=== PATIENT | female | born 1935 | race Caucasian/White ===

== ENCOUNTER 2018-08-01 14:03 | Outpatient (CLI) | payer MEDICARE, OTHER, MEDICAID ==
--- NOTE | 2018-07-28 13:36 | RAD ---
CHEST 2 VIEWS: Date: 07/28/18 COMPARISON: 05/06/16. HISTORY: Dyspnea. FINDINGS: Atherosclerosis of aorta. Enlarged cardiac silhouette. Pulmonary vessels and hilum are normal. Costop hrenic angles are clear. Chronic changes in the lung parenchyma. There is no pneumothorax. Stable joe nges in the osseous structures with degenerative change of the shoulders, as well as significant kyph osis of the thoracic spine and stable scoliosis. Extensive atherosclerosis of aorta is noted. IMPRESSION: 1. Atherosclerosis. 2. Chronic changes. POS: [facility]
== END 2018-08-01 14:04 | disposition home or self-care (01) ==
LOC: RAD 14:03
PROVIDERS: ATTEND Internal Medicine
DX: R06.00 Dyspnea, unspecified (principal); I70.0 Atherosclerosis of aorta
CPT/HCPCS: 71046

== ENCOUNTER 2018-11-24 20:00 | Inpatient (IN) | payer MEDICARE, OTHER, MEDICAID ==
[2018-11-24] MEDS ORDERED: Tranexamic Acid 1,000 MG/10 ML VIAL ONE (20:12)
[2018-11-24 20:53] LABS: #Basophils 0.1 thou/uL (0.0-0.2); #Eosinphils 0.1 thou/uL (0.0-0.7); #Lymphocytes 0.8 thou/uL (1.20-3.40); #Monocytes 0.8 thou/uL (0.11-0.59); #Neutrophils 6.9 thou/uL (1.40-6.50); %Eosinophils 0.9 % (0.0-10.0); %Lymphocytes 9.4 % (21.0-51.0); %Monocytes 8.7 % (0.0-10.0); Hemoglobin 8.2 g/dL (12.0-16.0); Mean Corpuscular HGB CONC 31.5 g/dL (32.0-36.0); Mean Corpuscular Hemoglobin 31.1 pg (27.0-31.0); Mean Corpuscular Volume 98.7 fL (78.0-98.0); Mean Platelet Volume 6.2 fL (7.4-10.4); Platelet Count 179 thou/uL (130-400); RBC Distribution Width 12.2 % (11.5-14.5); Red Blood Cell (RBC) Count 2.64 mill/uL (4.20-5.40); White Blood Cell (WBC) Count 8.6 thou/uL (4.8-10.8)
[2018-11-24 21:00] LABS: INR-International Normal Ratio 0.9; PTT 19.4 SEC (22.9-36.1); Prothrombin Time 11.8 SEC (12.0-14.7)
[2018-11-24 21:10] LABS: BUN (Urea Nitrogen) 29 mg/dL (9.8-20.1); Calc. Creatinine Clearance 0 mL/min (70-130); Calcium 8.6 mg/dL (7.8-10.44); Estimated GFR-MDRD 38; Glucose 147 mg/dL (83-110)
[2018-11-24 21:19] LABS: Anion Gap 17 mmol/L (10-20); Chloride 80 mmol/L (98-107); Sodium 135 mmol/L (136-145)
[2018-11-24 21:22] LABS: Carbon Dioxide 42 mmol/L (23-31)
--- NOTE | 2018-11-24 22:21 | RAD ---
PORTABLE CHEST ONE VIEW: 11/24/18 at 9:58 p.m. HISTORY: Dyspnea. FINDINGS/IMPRESSION: comparison made with exam of 07/28/18. The heart is enlarged. There is pulmonary vascular congestion with small pleural effusions and adjace nt infiltrate/atelectatic changes. No definite pneumothoraces are seen. There are degenerative change s in the shoulder joints. POS: [facility]
[2018-11-24] MEDS ORDERED: Piperacillin/Tazobactam 4.5 GM VIAL ONE (23:50)
[2018-11-25] MEDS ORDERED: cefTRIAXone\\ROCEPHIN 1 GM in Sodium Chloride 0.9% 100 ML IVPB SCH (02:30)
[2018-11-25] MEDS ORDERED: Furosemide 40 MG/4 ML VIAL SLOW IVP SCH (09:55)
[2018-11-25] MEDS: Digoxin 0.125 MG TAB PO SCH (10:43)
--- NOTE | 2018-11-25 11:11 | HP ---
CHIEF COMPLAINT: Nasal bleed and shortness of breath. HISTORY OF PRESENT ILLNESS: An 83-year-old female with past medical history significant for chronic respiratory failure from COPD, restrictive lung disease, CHF as well as atrial fibrillation, who presents to the emergency room with acute onset of epistaxis since yesterday afternoon. Due to persistent epistaxis, the patient has had removed the oxygen supplementation and was noted to be hypoxic with SpO2 in 70s by the EMS, who we are called for the epistaxis. The patient also reported worsening shortness of breath, which has been ongoing since about 2 months associated with worsening leg swelling and generalized weakness as well as difficulty ambulating due to worsening leg swelling. Of note, the patient reported that about 3 weeks ago, she was started on Xarelto for atrial fibrillation that had to be discontinued 2 days after due to persistent epistaxis. Since then, she has been having intermittent epistaxis, which stopped spontaneously, but yesterday's one did not stop, hence they had called EMS to help out. Of note, also the patient had discontinued aspirin, but this was restarted about a week ago. EMS had started the patient on non-rebreather mask with improvement in oxygen saturation. Nasal bleed was controlled with nasal packing and further evaluation with chest x-ray showed interstitial infiltrates and poor lung expansion as well as bilateral pleural effusion with atelectasis. ED physician made an impression of possible pneumonia and has started the patient on antibiotics and admitted the patient for further evaluation and treatment. The patient denied cough, fever, or sputum production. She also denied chest pain, nausea, vomiting, change in bowel habit, hematuria, dysuria. PAST MEDICAL HISTORY: 1. Hypertension. 2. Dementia. 3. Osteoporosis with severe kyphoscoliosis. 4. Chronic respiratory failure on home oxygen. 5. COPD. 6. Atrial fibrillation. 7. Congestive heart failure. PAST SURGICAL HISTORY: 1. Cholecystectomy. 2. Left hip surgery. 3. Appendectomy. 4. Hysterectomy with bilateral oophorectomy. SOCIAL HISTORY: The patient lives with children. She used to smoke, but quit a long time ago. There is no history of diabetes in the family, but mother and father had hypertension. Brother also had lung cancer. ALLERGIES: NO KNOWN DRUG ALLERGY REPORTED. HOME MEDICATIONS: 1. DuoNeb. 2. Daliresp 500 mcg daily. 3. Metoprolol. 4. Cardizem 120. 5. Aspirin 81 mg. 6. Budesonide 1 puff b.i.d. 7. Formoterol nebulizer 20 mcg inhalation b.i.d. 8. Meloxicam 50 mg daily. 9. Torsemide 50 mg daily. 10. Trazodone 100 mg at bedtime. 11. Digoxin 0.125 mg daily. 12. Donepezil 10 mg daily. REVIEW OF SYSTEMS: Twelve-point review of system performed was negative other than pertinent positives and negatives included in the history of present illness. PHYSICAL EXAMINATION: VITAL SIGNS: EMS had reported SpO2 of 70% at the patient's house. Vitals on presentation to the emergency room showed BP of 142/61, pulse of 102, respiratory rate of 22, SpO2 of 99 on non-rebreather mask. Current vital signs showed BP of 160/65, pulse 76, respiratory rate 16, SpO2 of 93 on 2 L nasal cannula, temperature 98.4. GENERAL: Clinically, ill-looking elderly female in no mild respiratory distress. Afebrile, anicteric, acyanotic. HEENT: Normocephalic. Right nose 3 packing noted. NECK: Marked kyphosis involving the lumbar, thoracic, and cervical spine. No masses noted. PULMONARY: Fair air entry bilateral with some transmitted sounds and few scattered rhonchi. Expiratory phase is prolonged, and work of breathing is increased. CARDIAC: Irregularly irregular rhythm and rate. Normal heart sounds 1 and 2. GI: Abdomen is full, soft, nontender, nondistended with normal bowel sounds. EXTREMITIES: [id number] bilateral leg edema noted. These are also tender. Scattered ecchymoses both patchy and confluent noted on both extremities, especially right upper limb. NEUROLOGIC: Conscious, alert, and oriented x3 with appropriate mental status. Cranial nerves 2 through 12 are grossly intact. The patient moves all extremities, but weakly. DIAGNOSTIC DATA: CBC showed WBC count of 8.6, hemoglobin of 8.2, platelet of 179, MCV of 98.7. Coagulation panel showed PT 11.8, INR 0.9, PTT 19.4. BMP showed sodium 135, potassium 4.0, chloride 80, CO2 of 42, anion gap 17, BUN 29, creatinine 1.33, glucose 147, calcium 8.6. BNP is 287.5. Serial troponins were unremarkable ranging from 0.024 to 0.025. Chest x-ray of November 24 compared to July 28, 2018 showed enlarged heart as well as pulmonary vascular congestion with small pleural effusion and adjacent infiltrates like atelectatic changes. No definite pneumothorax was seen. EKG: Showed atrial fibrillation with controlled ventricular rate of 86. ASSESSMENT AND PLAN: 1. Intractable epistaxis: This most likely is related to dry oxygen supplementation as well as use of antiplatelets. Epistaxis started since the patient was commenced on Xarelto, though that has been discontinued. The patient also had evidence of increased bleeding tendency given scattered patchy and confluent ecchymoses noted on the skin. Right nostril is packed at this time, and ENT re-evaluation is awaited at this time. 2. Acute on chronic congestive heart failure, most likely diastolic. Echocardiogram of 2014 showed preserved systolic function. The patient reportedly had a repeat echocardiogram last week and was told she had CHF exacerbation by the toe puncher. The patient at home takes torsemide, but had marked bilateral edema and also reported that shortness of breath has worsened in the last 1 to 2 months. We will start the patient on IV Lasix 40 mg b.i.d. and monitor I and O as well as daily weights and renal function. 3. Chronic respiratory failure on home oxygen: This is multifactorial in etiology with severe kyphosis with restrictive lung disease as well as COPD and CHF contributing. We will continue oxygen supplementation. 4. Chronic obstructive pulmonary disease: We will continue current breathing treatments, which include Daliresp as well as inhaled steroid. We will also continue p.r.n. DuoNeb's. 5. Atrial fibrillation: Chronic. Rate is controlled. We will continue digoxin and Cardizem. 6. Bilateral leg edema: Most likely due to congestive heart failure exacerbation. We will elevate both extremities and monitor with diuretics. 7. Chronic kidney disease with possible reversible component. The patient was noted to have normal creatinine of 0.95 in 2014. Currently, creatinine is 1.33. This may well be related to diuretic therapy at home or progression of CKD. We will monitor renal function with treatment with diuretics. 8. Hypertension: Control is fair. We will monitor with restarting of antihypertensives. 9. Deep vein thrombosis prophylaxis with sequential compression devices. No pharmacologic prophylaxis due to acute bleeding. 10. Anemia: Hemoglobin is 8.8. This is down from 12 in 2015. Acute blood loss, it seems most likely given history of intermittent epistaxis in the last 3 weeks. The patient is said to have lost good amount of blood from epistaxis. Some component of hemodilution giving fluid overload may be contributory. 11. Moderate protein-calorie malnutrition. The patient is said to have poor appetite and intake in the last few months due to worsening shortness of breath. I discussed possibility of diet supplement, and the patient was not enthusiastic. She does not like it and is not interested in trying. 12. Bilateral infiltrates on chest x-ray: This most likely is related to pulmonary congestion. Pneumonia is unlikely in the absence of systemic inflammatory response and cough. We would discontinue antibiotics. DISPOSITION: The patient ideally should be hospitalized for optimization. She, however, is bent on leaving the hospital today. I discussed hospice care with the patient and daughter, who are inclined to listening to them. I will consult Palliative Care. We will also consult Cardiology to help in optimizing the patient at this time since she just did echocardiogram a week ago and we are not privy to the reports. CODE STATUS: The patient is do not resuscitate. I discussed this with the patient and daughter at the bedside. Surrogate decision makers are the patient's 3 children. Job ID: [id number]
[2018-11-25] MEDS: Furosemide 40 MG/4 ML VIAL SLOW IVP SCH (15:18)
[2018-11-25] MEDS: Carvedilol 3.125 MG TAB PO SCH (20:42)
[2018-11-25] MEDS: Acetaminophen 325 MG TAB PO PRN (20:42)
--- NOTE | 2018-11-26 00:48 | CON ---
DATE OF CONSULTATION: PRIMARY CARE DOCTOR: Dr. Zakc Maldonado. PRIMARY ENDBAND CUTTER HAND: Dr. Lu Carpenter. REASON FOR CONSULT: New onset congestive heart failure. HISTORY OF PRESENT ILLNESS: Ms. Cheng is an 83-year-old female with a significant history of COPD with home O2 at 3 L nasal cannula, hypertension, atrial fibrillation, osteoporosis. The patient started having massive nose bleed since yesterday 3:00 p.m. The patient and the family member tried to stop, no success and also patient started having worsening of shortness of breath. Due to these symptoms, patient was transferred to the emergency department for further evaluation and treatment. Now, the patient was found to have a hemoglobin level of 8.2. At this moment, the patient's nosebleed stopped. The patient had a history of massive nosebleed before a couple months ago due to Xarelto for new onset atrial fibrillation. At that time, Xarelto was stopped because of those reasons. She is on aspirin 81 mg once a day at this moment for atrial fibrillation. The patient denies any chest pain, heaviness, tightness, dizziness, lightheadedness, numbness to the left upper arm, to the neck or any other cardiac complaints during the episode. She had a very short episode of fluttering this morning. However, she does not have any other cardiac complaints at that time. The patient had echocardiogram done at Dr. Carpenter' office in October 2018, which shows EF of 55% to 60%, [id number] LAE, moderate NADYA, [id number] mitral valve regurgitation, and moderate tricuspid regurgitation, mild pulmonary insufficiency, mild pulmonary hypertension, elevated RVSP 48.3 mmHg. She had chronic edema in the lower extremities. She has not had any other cardiac workup according to Dr. Carpenter' office note. PAST MEDICAL HISTORY: 1. Atrial fibrillation. 2. Hypertension. 3. COPD with home O2 at 3 L nasal cannula. Patient has seen Dr. Swann. 4. Insomnia. 5. Hypoxia. 6. Osteoporosis. SURGICAL HISTORY: 1. Appendectomy. 2. Cholecystectomy. 3. Bilateral hip surgery. 4. Cataracts. 5. Hysterectomy with bilateral oophorectomy. FAMILY HISTORY: The patient's father had a history of myocardial infarction at the age of 72. Besides that, no significant cardiovascular disease in her family. SOCIAL HISTORY: The patient is . She is living with her daughter. She is an ex-smoker, quit about 10 years ago. She used to smoke half a pack a day. She used to drink alcohol 2 double whiskey everyday, but she quit about 6 years ago. No illicit drug abuse. She drinks 32 ounces tea every day. ALLERGIES: SHE HAS NO KNOWN DRUG ALLERGIES. HOME MEDICATION: 1. Albuterol 1.5 mg nebs every 6 hours as needed. 2. Aspirin 81 mg once a day. 3. Aricept 10 mg once a day. 4. Diltiazem 120 mg once a day. 5. Trazodone 100 mg once a day. 6. Torsemide 50 mg once a day. 7. Digoxin 0.125 mg once a day. 8. Mobic 15 mg once a day. 9. Daliresp 500 mg once a day. 10. Multivitamin once a day. 11. Metoprolol 25 mg twice a day. 12. Perforomist 20 mcg every 12 hours. 13. Budesonide one puff twice a day. REVIEW OF SYSTEMS: 12-point review of systems negative otherwise mentioned in the HPI. The patient used to be on a can of soup one and half months before due to the worsening of shortness of breath. About 3 weeks ago, she started taking more solid food. The daughter is watching more carefully about the salt intake at this moment. She uses a cane at home and she uses a wheelchair when she is going out. She denies any constipation, diarrhea, blood in stool or urine. PHYSICAL EXAMINATION: VITAL SIGNS: Blood pressure 130/58, temperature 99.1, heart rate 100, atrial fibrillation, respiratory rate 18, O2 saturation 92% on 3 L nasal cannula. GENERAL: Patient is alert and oriented x4, not in acute distress. HEENT: Normocephalic, atraumatic. EYES: Extraocular muscle movement intact. ENT and mouth, oral and nasal mucosa moist. She has dried blood to right naris, but no current bleeding at this moment. NECK: Supple. Normal range of motion. RESPIRATORY: Very diminished over her lungs at this moment, but no wheezing, rales, rhonchi noted. CARDIOVASCULAR: Irregular rate and rhythm. No S3 or S4. No significant murmur, heaves, or thrill noted. 2+ pulses in bilateral upper and lower extremities. 2 to 3 pitting edema in the lower extremities with discoloration. ABDOMEN: Soft, nontender. No mass to palpitate. Bowel sounds are present. MUSCULOSKELETAL: The patient is able to move all extremities. The patient denied claudication. SKIN: Bruise to upper and lower extremities. The patient had very thin skin, but no rash noted or laceration noted. PSYCHIATRIC: Patient's mood is appropriate. NEUROLOGIC: The patient is alert and oriented x4, nonfocal. LABORATORY DATA: WBC 8.6, hemoglobin 8.2, hematocrit 26.1, platelet 179. PT 11.8, INR 0.9. Sodium 135, potassium 4.0, BUN 29, creatinine 1.33. Troponin 0.024, 0.024, and 0.025. BNP 287.5. Patient's chest x-ray shows pulmonary vascular congestion with small pleural effusion and adjacent infiltrate, atelectatic change. There are degenerative changes in the shoulder joint. ASSESSMENT/PLAN: 1. Acute on diastolic heart failure. The patient's condition is stable at this moment after the patient received Lasix 40 mg IV push. Per family, she is on Lasix 40 mg IV push twice a day for now, however, she is not on LAUREN inhibitor or ARB at this moment due to elevated creatinine level. We would like to start some beta-darrel for this patient, low dose of metoprolol for this patient or I would like to start the Coreg for diastolic heart failure, but we have to be very careful about starting the beta-darrel because the patient has a long history of COPD with home O2. 2. Atrial fibrillation. The patient continued having the atrial fibrillation on the monitor at this moment with a well controlled heart rate. The patient on diltiazem 120 mg once a day and digoxin 0.125 mg once a day. She is not on any anticoagulant or aspirin at this moment due to history of status post massive nosebleed. We would like to continue to monitor and if the patient is stable, we might be able to resume aspirin 81 mg once a day. 3. Hypertension. We would like to go ahead and start low dose of Coreg twice a day for hypertension and diastolic heart failure. 4. Chronic obstructive pulmonary disease. The patient's condition is stable at this moment. Usually, she is on home O2 3 L nasal cannula with O2 saturation upper 80s to lower 90s at home. Possible Pulmonary consult is beneficial for this patient for chronic obstructive pulmonary disease management. 5. Edema in the bilateral lower extremities. The patient on Lasix twice a day and instructed the patient to raise the lower extremities and she has SCDs at this moment. Thank you very much for allowing the Cardiology Service to participate in the care of this patient. We will follow along the patient's care team and make further recommendations as appropriate. Job ID: [id number]
[2018-11-26] MEDS: Furosemide 40 MG/4 ML VIAL SLOW IVP SCH ×2 (05:26→14:43)
[2018-11-26 06:11] LABS: #Basophils 0.1 thou/uL (0.0-0.2); #Eosinphils 0.1 thou/uL (0.0-0.7); #Lymphocytes 1.1 thou/uL (1.20-3.40); #Monocytes 0.8 thou/uL (0.11-0.59); #Neutrophils 4.9 thou/uL (1.40-6.50); %Basophils 1.2 % (0.0-1.0); %Eosinophils 1.3 % (0.0-10.0); %Lymphocytes 16.3 % (21.0-51.0); %Monocytes 11.8 % (0.0-10.0); %Neutrophils 69.5 % (42.0-75.0); Hemoglobin 7.5 g/dL (12.0-16.0); Mean Corpuscular HGB CONC 32.6 g/dL (32.0-36.0); Mean Corpuscular Hemoglobin 31.8 pg (27.0-31.0); Mean Corpuscular Volume 97.3 fL (78.0-98.0); Mean Platelet Volume 6.2 fL (7.4-10.4); Platelet Count 164 thou/uL (130-400); Red Blood Cell (RBC) Count 2.37 mill/uL (4.20-5.40)
[2018-11-26 06:36] LABS: BUN (Urea Nitrogen) 26 mg/dL (9.8-20.1); Calc. Creatinine Clearance 27 mL/min (70-130); Calcium 8.6 mg/dL (7.8-10.44); Estimated GFR-MDRD 49; Glucose 87 mg/dL (83-110)
[2018-11-26] MEDS: Arformoterol 15 MCG/2 ML NEB NEB SCH ×2 (06:37→21:47)
[2018-11-26 06:45] LABS: Anion Gap 19 mmol/L (10-20); Carbon Dioxide 36 mmol/L (23-31); Chloride 82 mmol/L (98-107); Potassium 3.8 mmol/L (3.5-5.1); Sodium 133 mmol/L (136-145)
[2018-11-26] MEDS: Carvedilol 3.125 MG TAB PO SCH ×2 (09:54→22:00)
[2018-11-26] MEDS: Digoxin 0.125 MG TAB PO SCH (09:54)
[2018-11-26] MEDS: Donepezil HCl 10 MG TAB PO SCH (09:54)
[2018-11-26] MEDS: Acetaminophen 325 MG TAB PO PRN (10:18)
--- NOTE | 2018-11-26 11:15 | PRG ---
DATE OF SERVICE: 11/26/2018 SUBJECTIVE: The patient is seen and examined at the bedside. Her daughter is present in the room during my visit. Her appetite is fair. Peripheral edema significantly diminished according to the daughter and overall she feels significantly better. OBJECTIVE: VITAL SIGNS: Blood pressure is 140/70, pulse is 99, temperature is 98.1, respiratory rate is 18, O2 saturation is 95% on 2.5 L by nasal cannula. HEENT: Head is atraumatic and normocephalic. Sclerae are nonicteric. Oral mucosa is moist. She has right nose NECK: Supple. LUNGS: Breath sounds diminished at both bases. Few crackles bilaterally. HEART: S1 and S2 normal. No S3. No S4. ABDOMEN: Soft, nontender, nondistended. EXTREMITIES: 1+ peripheral edema both lower extremities. NEUROLOGICAL: She follows my commands. She is alert and oriented x3. There are no any motor or sensory deficits present. Cranial nerves are intact. LABORATORY DATA: Labs showed white count of 7, hemoglobin 7.5, hematocrit 23.1, and platelet count is 164,000. Sodium of 133, potassium 3.8, chloride of 82, CO2 of 36, BUN 26, creatinine 1.07. The rest of chemistry within normal limits. IMPRESSION: 1. Acute on chronic congestive heart failure. 2. Intractable epistaxis, status post right nostril packing by ER MD. 3. Chronic respiratory failure, on home oxygen. This is secondary to chronic obstructive pulmonary disease. 4. Atrial fibrillation, rate controlled. 5. Peripheral edema improved. 6. Acute on chronic kidney disease, improved. 7. Hypertension. 8. Anemia, most likely acute component secondary to epistaxis. PLAN: Plan is to continue new regimen with carvedilol 3.125 mg twice a day along with digoxin 0.125 mg once a day and Cardizem CD 120 mg once a day. We will continue her furosemide 40 mg IV push, which improved her pulmonary and peripheral edema status significantly. Continue her Brovana and DuoNeb and Daliresp. Right nostril packing needs to be removed tomorrow and she will be observed for recurrent nasal bleeding. Job ID: [id number]
--- NOTE | 2018-11-26 13:58 | PDOC.CTH ---
Cardiology Progress Note - Subjective The pt seen and examined. No overnight events. No cardiac complaints. - Objective Vital Signs Temp Pulse Resp BP Pulse Ox 11/26/18 12:00 128/84 11/26/18 11:52 98.1 F 86 18 98 11/26/18 10:42 62 16 11/26/18 09:54 99 11/26/18 08:00 122/78 95 11/26/18 07:49 98.1 F 99 18 95 11/26/18 06:37 96 16 11/26/18 06:29 99 11/26/18 06:28 98 16 11/26/18 04:30 140/70 11/26/18 04:00 98.3 F 90 16 99 11/26/18 02:18 100 22 H 99 Weight 99 lb 12.8 oz 11/25/18 11/26/18 11/27/18 06:59 06:59 06:59 Intake Total 960 Output Total 901 Balance 59 - Physical Examination General/Neuro: alert & oriented x3 Neck: no JVD present Lungs: other: (coarses and diminihsed at bases) Heart: other: (irregular) Abdomen: soft Extremities: other: (2+ pitting BLE edema; bruses) - Telemetry Telemetry Rhythm: AFib - Labs Result Diagrams: 11/27/18 09:03 11/27/18 09:03 Troponin/CKMB Troponin I 0.025 ng/mL (< 0.028) 11/25/18 03:00 - Assessment/Plan 1. Acute on Chronic diastolic HF - Her resp. status has been improved since yesterday per the pt. On Lasix 40mg IV BID and Coreg 3.125mg BID. When the pt' s VS is more stable with stable Cr level, may start LAUREN/ARB. 2. Afib - well controlled HR; on Diltiazem and Digoxin. Not on OAC or ASA 2/2 Epistaxis 3. HTN - stable 4. COPD - stable 5. Anemia 2/2 Epistaxis - cont. to monitor MAR reviewed Pt. seen and eval. by me. I agree with the A/P by the INSPECTOR BALANCE BRIDGE.Nasal pack still in. Chest clear. Irreg/irreg. Review of Systems - Review of Systems Constitutional: reports: no symptoms reported EENTM: reports: no symptoms reported Respiratory: reports: no symptoms reported Cardiac (ROS): reports: no symptoms reported ABD/GI: reports: no symptoms reported : reports: no symptoms reported
[2018-11-26] MEDS ORDERED: Nitroglycerin 0.4 MG TAB (25 Tab Bottle) SL SCH (21:45)
[2018-11-26] MEDS ORDERED: Nitroglycerin 0.4 MG TAB (25 Tab Bottle) SL PRN (22:20)
[2018-11-26] MEDS ORDERED: Ondansetron ODT 4 MG TAB PO PRN (23:35)
[2018-11-26] MEDS ORDERED: traZODone HCl 50 MG TAB PO SCH (23:45)
[2018-11-27] MEDS: Furosemide 40 MG/4 ML VIAL SLOW IVP SCH (05:53)
[2018-11-27 05:59] VITALS: BMI 21.9
[2018-11-27] MEDS: Arformoterol 15 MCG/2 ML NEB NEB SCH ×2 (06:48→18:19)
[2018-11-27] MEDS ORDERED: Ondansetron PF 4 MG/2 ML Vial IVP PRN (08:07)
[2018-11-27] MEDS ORDERED: Loperamide HCl 2 MG CAP PO PRN (08:07)
[2018-11-27] MEDS ORDERED: Diabetic Tussin 200 MG/10 ML UDCUP PO PRN (08:07)
[2018-11-27] MEDS ORDERED: Cepastat Lozenges 1 LOZ PO PRN (08:07)
[2018-11-27] MEDS ORDERED: Senokot S 8.6-50 MG TAB PO PRN (08:07)
[2018-11-27] MEDS ORDERED: Loratadine 10 MG TAB PO PRN (08:07)
[2018-11-27] MEDS ORDERED: Eucerin (Mineral Oil/Petrolatum,White) 30 gm Jar TOP PRN (08:07)
[2018-11-27] MEDS ORDERED: Bisacodyl 10 MG SUPP PR PRN (08:07)
[2018-11-27] MEDS ORDERED: Sodium Chloride 0.65% Nasal 44 ML BOT EA NARE PRN (08:07)
[2018-11-27] MEDS ORDERED: Artificial Tears 18 DROP/0.9 ML EA EYE PRN (08:07)
[2018-11-27] MEDS ORDERED: hydrALAZINE 20 MG/ML VIAL SLOW IVP PRN (08:07)
[2018-11-27] MEDS: Donepezil HCl 10 MG TAB PO SCH (08:46)
[2018-11-27] MEDS: Digoxin 0.125 MG TAB PO SCH (08:46)
[2018-11-27] MEDS: Carvedilol 3.125 MG TAB PO SCH (08:47)
[2018-11-27] MEDS ORDERED: Budesonide 0.5 MG/2 ML NEB NEB SCH (09:00)
--- NOTE | 2018-11-27 09:04 | PDOC.CTH ---
Cardiology Progress Note - Subjective The pt seen and examined. Per family, the pt had dull like CP with tingling to RUE. No improvement with 2 NTGs. No 12 lead ECG changed. Per family, the pt does not have any appetite, just drinks tea. 2 episodes of Afib with RVR for 1 mins, last episode was 0700 this AM. - Objective Vital Signs Temp Pulse Resp BP Pulse Ox 11/27/18 08:46 94 11/27/18 07:32 97.7 F 99 18 95 11/27/18 07:30 150/72 H 11/27/18 06:48 98 20 11/27/18 06:41 98 11/27/18 06:39 102 H 24 H 11/27/18 05:00 97.7 F 91 20 150/82 H 97 11/27/18 02:15 88 18 98 11/27/18 01:28 94 L 11/27/18 00:00 98 F 103 H 22 H 170/94 H 97 11/26/18 23:28 160/84 H 11/26/18 21:47 122 H 20 93 L Weight 97 lb 11.2 oz 11/26/18 11/27/18 11/28/18 06:59 06:59 06:59 Intake Total 960 Output Total 901 Balance 59 - Physical Examination General/Neuro: alert & oriented x3 Neck: no JVD present Lungs: other: (coarses and diminished at bases) Heart: other: (irregular) Abdomen: soft Extremities: other: (2+ pitting BLE edema) - Telemetry Telemetry Rhythm: AFib 80-100s - Labs Result Diagrams: 11/27/18 09:03 11/27/18 09:03 Troponin/CKMB Troponin I 0.025 ng/mL (< 0.028) 11/25/18 03:00 - Assessment/Plan 1. Acute on Chronic diastolic HF - Her resp. status has been improved since yesterday per the pt. On Lasix 40mg IV BID and Coreg 3.125mg BID, which will be increase to 6.25mg BID from this AM. When the pt's VS is more stable with stable Cr level, may start LAUREN/ARB. 2. Afib - 2 episodes of RVR with HR up to 160 for 1 mins (last episode was 0700 this AM); on Diltiazem and Digoxin. Increase Coreg to 6.25mg BID from this AM; Not on OAC or ASA 2/2 Epistaxis 3. HTN - Increase Coreg to 6.25mg BID 4. COPD - stable with NC. 5. Anemia 2/2 Epistaxis - cont. to monitor 6. CP with tingling - cont. dull like CP with tingling to Rt hand MAR reviewed Pt. seen and eval. by me. I agree with the A/P by the BUSINESS CONTINUITY PLANNER.Nasal pack removed. No bleeding. Chest clear. Irreg/irreg. Pt. has decided to go home with hospice. Review of Systems - Review of Systems Constitutional: reports: weakness EENTM: reports: no symptoms reported Respiratory: reports: see HPI Cardiac (ROS): reports: see HPI ABD/GI: reports: poor appetite
[2018-11-27 09:12] LABS: #Lymphocytes 0.8 thou/uL (1.20-3.40); #Monocytes 0.5 thou/uL (0.11-0.59); #Neutrophils 6.1 thou/uL (1.40-6.50); %Basophils 0.5 % (0.0-1.0); %Eosinophils 0.4 % (0.0-10.0); %Lymphocytes 10.9 % (21.0-51.0); %Monocytes 6.3 % (0.0-10.0); %Neutrophils 81.9 % (42.0-75.0); Hemoglobin 8.3 g/dL (12.0-16.0); Mean Corpuscular HGB CONC 33.4 g/dL (32.0-36.0); Mean Corpuscular Hemoglobin 30.8 pg (27.0-31.0); Mean Corpuscular Volume 92.4 fL (78.0-98.0); Mean Platelet Volume 6.2 fL (7.4-10.4); Platelet Count 219 thou/uL (130-400); RBC Distribution Width 11.9 % (11.5-14.5); Red Blood Cell (RBC) Count 2.68 mill/uL (4.20-5.40); White Blood Cell (WBC) Count 7.4 thou/uL (4.8-10.8)
[2018-11-27] MEDS ORDERED: Carvedilol 3.125 MG TAB PO SCH (09:15)
[2018-11-27 09:31] LABS: ALT (SGPT) 14 U/L (8-55); AST (SGOT) 39 U/L (5-34); Albumin 3.3 g/dL (3.4-4.8); Alkaline Phosphatase 76 U/L (40-150); Anion Gap 17 mmol/L (10-20); BUN (Urea Nitrogen) 15 mg/dL (9.8-20.1); Bilirubin, Total 0.6 mg/dL (0.2-1.2); Calc. Creatinine Clearance 31 mL/min (70-130); Calcium 8.2 mg/dL (7.8-10.44); Carbon Dioxide 36 mmol/L (23-31); Estimated GFR-MDRD 58; Globulin 2.9 g/dL (2.4-3.5); Glucose 97 mg/dL (83-110); Magnesium 1.3 mg/dL (1.6-2.6); Protein, Total 6.2 g/dL (6.0-8.3); Sodium 120 mmol/L (136-145)
[2018-11-27 09:34] LABS: Chloride 70 mmol/L (98-107)
--- NOTE | 2018-11-27 09:59 | CON ---
DATE OF CONSULTATION: 11/25/2018 ADDENDUM: Please refer to the notes already dictated by nurse practitioner, Birgit Suarez. This is an addendum to that note. We were asked to see her due to chronic atrial fibrillation with rapid ventricular response. HISTORY OF PRESENT ILLNESS: This is a very pleasant 83-year-old female, I just recently saw for the first time in the office. She has a long history of COPD. She is pretty much wheelchair or bed ridden. She has chronic atrial fibrillation with rapid ventricular response at times, and when trying to monitor her heart rate, it is controlled a little bit better, but she was only seen in the office one time just recently as a new patient. She was on Xarelto in the past for oral anticoagulation, but then developed epistaxis, was not able to continue taking that medication. At this time, she presented after having significant epistaxis and was having difficulty breathing and was brought to the hospital. She does have home O2 and has a history of chronic COPD. She also has other problems with mild dementia and hypertension as well as some congestive heart failure. For her past medical history, social history, family history, review of systems, medications, and allergies, please refer to the notes dictated by my nurse practitioner. PHYSICAL EXAMINATION: GENERAL: Reveals a very fragile, ill-appearing female who is in no acute distress at this time. She does have a nasal packing in. VITAL SIGNS: Her blood pressure is 130/58, heart rate is in 88 to 114 with atrial fibrillation, O2 are saturations 89% to 92%, respiratory rate 18 to 24, temperature is 99.1, previously it was 98.0. HEENT: Shows the head is normocephalic and atraumatic. I do not hear any significant bruits at this time. The carotid pulses are present. CHEST: Her chest has decreased breath sounds throughout. CARDIOVASCULAR: Reveals an irregularly irregular rhythm with tachycardia. She has a systolic murmur at the apex as well as over the aortic area. ABDOMEN: Soft and nontender. Positive bowel sounds are present. EXTREMITIES: Showed 1+ lower extremity edema with legs elevated. She also has some discoloration with some ecchymosis on the lower extremities. Pedal pulses, I could not palpate. NEUROLOGIC: She is grossly intact. LABORATORY DATA: BNP of 287. Her potassium was 4.0, BUN was 29, glucose was 147. Cardiac enzymes are indeterminate at 0.024. Chest x-ray shows cardiomegaly with increased vascular markings and small pleural effusion. There was some atelectasis, but no significant abnormalities otherwise were noted for someone of her age of [age] years old. EKG shows atrial fibrillation with rate of 86; however, the monitor does show heart rates going up in the 120s at times. IMPRESSION: 1. Elderly female with epistaxis which may be related to her chronic use of oxygen at home without being moisturized. She has not been on any oral anticoagulation for quite some time now. She had been on the Xarelto in the past, but this has been held. I believe she has been taking perhaps a baby aspirin. Hopefully, she will continue this. ENT will see her on Tuesday. 2. History of severe chronic obstructive pulmonary disease, which is chronic. She is on home O2 02/05 and also has just exacerbated by her severe kyphosis. 3. Chronic atrial fibrillation, which is under reasonable rate control most of the time. We will continue medication. If necessary, can increase the dose of the diltiazem. 4. Some chronic kidney disease, but this time it appears to be stable. 5. Lower extremity edema. I have advised her on many occasions to be able to wrap the legs with [place] wraps and keep them elevated. At this time, we will be more than happy to continue to follow the patient with you. However, it will be very difficult to control the heart rate. We are unable to use beta blockers and would be very careful about digoxin in this lady who has some renal insufficiency. I will review my records from the office and will attach the echocardiogram that was recently performed in the office. Job ID: [id number]
[2018-11-27] MEDS ORDERED: Magnesium Sulfate 3 GM in Sodium Chloride 0.9% 100 ML IVPB SCH (10:00)
[2018-11-27] MEDS: Budesonide 0.5 MG/2 ML NEB NEB SCH ×2 (10:34→18:19)
--- NOTE | 2018-11-27 11:52 | PDOC.PN ---
- Subjective Encounter Start Date: 11/27/18 Encounter Start Time: 07:00 -: old records requested/rev pt is very weak, gets dyspnea very quick, requires oxygen, family bedside - Objective Resuscitation Status - Order Detail: 11/26/18 19:43 Resuscitation Status Routine Resuscitation Status: DNAR: NO Resuscitation Discussed with: Caitlin Cheng and her daughter IRVING Reviewed: Yes Vital Signs & Weight: Vital Signs (12 hours) Temp Pulse Resp BP Pulse Ox 11/27/18 11:47 97.8 F 97 20 94 L 11/27/18 10:34 96 20 11/27/18 10:27 96 20 11/27/18 08:46 94 11/27/18 07:32 97.7 F 99 18 95 11/27/18 07:30 150/72 H 11/27/18 06:48 98 20 11/27/18 06:41 98 11/27/18 06:39 102 H 24 H 11/27/18 05:00 97.7 F 91 20 150/82 H 97 11/27/18 02:15 88 18 98 11/27/18 01:28 94 L 11/27/18 00:00 98 F 103 H 22 H 170/94 H 97 Weight Weight 97 lb 11.2 oz I&O: 11/26/18 11/27/18 11/28/18 06:59 06:59 06:59 Intake Total 960 240 Output Total 901 Balance 59 240 Result Diagrams: 11/27/18 09:03 11/27/18 09:03 Radiology Reviewed by me: Yes EKG Reviewed by me: Yes Phys Exam - Physical Examination Constitutional: NAD HEENT: PERRLA, sclera anicteric nasal packing Neck: no JVD, supple reduced air entry Cardiovascular: irregular Gastrointestinal: soft, non-tender, no distention Musculoskeletal: pulses present, edema present Neurological: non-focal Lymphatic: no nodes Psychiatric: normal affect Skin: no rash, normal turgor Dx/Plan (1) Acute kidney failure Status: Acute (2) Acute on chronic diastolic ACC/AHA stage C congestive heart failure Code(s): I50.33 - ACUTE ON CHRONIC DIASTOLIC (CONGESTIVE) HEART FAILURE Status : Acute (3) Epistaxis Code(s): R04.0 - EPISTAXIS Status: Acute (4) Hypomagnesemia Code(s): E83.42 - HYPOMAGNESEMIA Status: Acute (5) Hyponatremia Code(s): E87.1 - HYPO-OSMOLALITY AND HYPONATREMIA Status: Acute (6) COPD (chronic obstructive pulmonary disease) Status: Chronic (7) Chronic atrial fibrillation Code(s): I48.2 - CHRONIC ATRIAL FIBRILLATION Status: Chronic (8) Chronic respiratory failure with hypoxia, on home O2 therapy Code(s): J96.11 - CHRONIC RESPIRATORY FAILURE WITH HYPOXIA; Z99.81 - DEPENDENCE ON SUPPLEMENTAL OXYGEN Status: Chronic (9) Senile dementia Code(s): F03.90 - UNSPECIFIED DEMENTIA WITHOUT BEHAVIORAL DISTURBANCE Status: Chronic - Plan cont current plan of care, plan discussed w/ family, continue antibiotics, respiratory therapy * replace magnesium * hold lasix for now * pt is not stable to go to ENT clinic for nasal packing removal * her prognosis is very poor * family and pt agreed with home hospice evaluation * medication reviewed as below * symptomatic treatment * discussed with family. Review of Systems - Review of Systems Constitutional: weakness, malaise. negative: fever, chills, sweats, other Respiratory: Shortness of Breath, SOB with Excertion. negative: Cough, Dry, Hemoptysis, Pleuritic Pain, Sputum, Wheezing Cardiovascular: negative: chest pain, palpitations, orthopnea, paroxysmal nocturnal dyspnea, edema, light headedness, other Gastrointestinal: negative: Nausea, Vomiting, Abdominal Pain, Diarrhea, Constipation, Melena, Hematochezia, Other Genitourinary: negative: Dysuria, Frequency, Incontinence, Hematuria, Retention , Other Musculoskeletal: negative: Neck Pain, Shoulder Pain, Arm Pain, Back Pain, Hand Pain, Leg Pain, Foot Pain, Other - Medications/Allergies Allergies/Adverse Reactions: Allergies Allergy/AdvReac Type Severity Reaction Status Date / Time No Known Allergies Allergy Unverified 08/13/15 10:42 Medications: Current Medications Acetaminophen (Tylenol) 650 mg PO Q6H PRN PRN Reason: Headache/Fever or Pain Last Admin: 11/26/18 10:18 Dose: 650 mg Albuterol/Ipratropium (Duoneb) 3 ml NEB [id number] JERRI Last Admin: 11/27/18 10:27 Dose: 3 ml Arformoterol Tartrate (Brovana) 15 mcg NEB BID-RT JERRI Last Admin: 11/27/18 06:48 Dose: 15 mcg Artificial Tears (Tears Naturale) 2 drop EA EYE PRN PRN PRN Reason: Dry Eyes Bisacodyl (Dulcolax) 10 mg [place] DAILYPRN PRN PRN Reason: Constipation Budesonide (Pulmicort Neb Solution) 0.5 mg NEB BID [facility] Last Admin: 11/27/18 10:34 Dose: 0.5 mg Carvedilol (Coreg) 6.25 mg PO BID-[facility] Digoxin (Lanoxin) 0.125 mg PO DAILY [facility] Last Admin: 11/27/18 08:46 Dose: 0.125 mg Diltiazem HCl (Cardizem Cd) 120 mg PO DAILY [facility] Last Admin: 11/27/18 08:46 Dose: 120 mg Donepezil HCl (Aricept) 10 mg PO DAILY [facility] Last Admin: 11/27/18 08:46 Dose: 10 mg Guaifenesin (Robitussin Sf) 200 mg PO Q4H PRN PRN Reason: Cough Hydralazine HCl (Apresoline) 10 mg SLOW IVP Q4H PRN PRN Reason: SBP > 180 and HR < 70 Magnesium Sulfate 3 gm/ Sodium (Chloride) 106 mls @ 100 mls/hr IVPB ONE [facility] Stop: 11/27/18 12:00 Last Admin: 11/27/18 11:19 Dose: 106 mls Loperamide HCl (Imodium) 2 mg PO PRN PRN PRN Reason: Diarrhea/Loose Stools Loratadine (Claritin) 10 mg PO DAILYPRN PRN PRN Reason: Sinus Symptoms Mineral Oil/White Petrolatum (Eucerin Cream) 0 gm TOP BIDPRN PRN PRN Reason: Dry Skin Nitroglycerin (Nitrostat) 0.4 mg SL Q5MIN PRN PRN Reason: Chest Pain Last Admin: 11/26/18 23:26 Dose: 0.4 mg (Roflumilast [ (Daliresp] 500 Mcg)) 0 mcg PO DAILY [facility] Ondansetron HCl (Zofran Odt) 4 mg PO Q4H PRN PRN Reason: Nausea/Vomiting Last Admin: 11/27/18 00:00 Dose: 4 mg Ondansetron HCl (Zofran) 4 mg IVP Q6H PRN PRN Reason: Nausea/Vomiting Senna/Docusate Sodium (Senokot S) 2 tab PO BID PRN PRN Reason: Constipation Sodium Chloride ([place] Nasal [place] 0.65%) 0 ml EA NARE QIDPRN PRN PRN Reason: Nasal Congestion Sodium Chloride (Flush - Normal Saline) 10 ml IVF Q12HR JERRI Last Admin: 11/27/18 08:47 Dose: 10 ml Sodium Chloride (Flush - Normal Saline) 10 ml IVF PRN PRN PRN Reason: Saline Flush Throat Lozenges (Cepastat Lozenges) 1 radha PO Q2H PRN PRN Reason: Sore Throat Trazodone HCl (Desyrel) 100 mg PO HS JERRI
[2018-11-27 11:55] LABS: Actual Bicarbonate (HCO3a) 41.8 mEq/L (22-28); Base Excess (BEa) 17.7 mEq/L (-2.0 to +3.0); CO2 Tension 48.4 mmHg (35.0-45.0); Calcium, Ionized 0.91 mmol/L (1.12-1.30); Hemoglobin (Hb) 8.1 g/dL (12.0-16.0); O2 Tension (PaO2) 67.2 mmHg (> 60.0); Potassium - ABG Lab 3.13 mmol/L (3.70-5.30)
[2018-11-27 11:56] LABS: Puncture Site LRA; pH, Arterial 7.55 (7.35-7.45)
[2018-11-27] MEDS ORDERED: Oxymetazoline HCl 0.05% ( 15 ML ) NASAL PRN (13:17)
--- NOTE | 2018-11-27 13:28 | PQF ---
CLINICAL DOCUMENTATION IMPROVEMENT CLARIFICATION FORM: ICD-10 Updated PLEASE DO AN ADDENDUM TO THE PROGRESS NOTE WITH ANY DOCUMENTATION UPDATES OR ADDITIONS AND CARRY THROUGH TO DC SUMMARY. THANK YOU. DATE: 11/27/18 ATTN : DR. SANTANA Please exercise your independent, professional judgment in responding to the clarification form. Clinical indicators are provided on the bottom of this form for your review Please check appropriate box(s): [ x ] Acute On Chronic Respiratory Failure: [x ] with Hypoxia [x ] with Hypercapnia [ ] Chronic Respiratory Failure only [ ] with Hypoxia [ ] with Hypercapnia [ ] Hypoxia [ ] Other diagnosis [ ] Unable to determine In addition, please specify: Present on Admission (POA): [ x ] Yes [ ] No [ ] Unable to determine For continuity of documentation, please document condition throughout progress notes and discharge summary. Thank You. CLINICAL INDICATORS - SIGNS / SYMPTOMS / LABS ER NOTE: "EMS REPORT PT O2 SAT IN THE 70'S, BEGAN GIVING HER BLOW BY O2 BUT HAS BEEN COMPLAINING OF DIFFICULTY BREATHING." RR 22 PULSE 102 RISKS: H/O CHRONIC RESPIRATORY FAILURE H/O COPD H/O CHF TREATMENT: SUPPLEMENTAL OXYGEN PER NONREBREATHER MASK) DUONEBS (11/25-PRESENT) BROVANA (11/26-PRESENT) IV LASIX (11/25-PRESENT) (This form is maintained as a part of the permanent medical record) 2014 [employer] All Rights Reserved [email or web address] Office: [phone] [facility]
--- NOTE | 2018-11-27 13:39 | PQF ---
CLINICAL DOCUMENTATION IMPROVEMENT CLARIFICATION FORM: ICD-10 Updated PLEASE DO AN ADDENDUM TO THE PROGRESS NOTE WITH ANY DOCUMENTATION UPDATES OR ADDITIONS AND CARRY THROUGH TO DC SUMMARY. THANK YOU. DATE: 11/27/18 ATTN: DR. SANTANA Please exercise your independent, professional judgment in responding to the clarification form. Clinical indicators are provided on the bottom of this form for your review Please check appropriate box(s) to clarify if the following diagnosis has been ruled in or ruled out: PNEUMONIA [ ] Ruled in diagnosis [ ] Continue to treat [ ] Resolved [x ] Ruled out diagnosis [ ] Other diagnosis [ ] Unable to determine In addition, please specify: Present on Admission (POA): [ ] Yes [ x ] No [ ] Unable to determine For continuity of documentation, please document condition throughout progress notes and discharge summary. Thank You. CLINICAL INDICATORS - SIGNS / SYMPTOMS / LABS ER NOTE: "EMS REPORT PT O2 SAT IN THE 70'S, BEGAN GIVING HER BLOW BY O2 BUT HAS BEEN COMPLAINING OF DIFFICULTY BREATHING." DX: "PNEUMONIA" RR 22 PULSE 102 ABG PCO2 48.4 / PO2 67.2 CHEST XRAY: "THERE IS PULMONARY VASCULAR CONGESTION WITH SMALL PLEURAL EFFUSIONS AND ADJACENT INFILTRATE/ATELECTATIC CHANGES" H&P: 'ED PHYSICIAN MADE AN IMPRESSION OF POSSIBLE PNEUMONIA..." PROGRESS NOTE 11/25: "PNEUMONIA IS UNLIKELY" RISKS: H/O CHRONIC RESPIRATORY FAILURE H/O COPD H/O CHF TREATMENT: SUPPLEMENTAL OXYGEN PER NONREBREATHER MASK) DUONEBS (11/25-PRESENT) BROVANA (11/26-PRESENT) IV LASIX (11/25-PRESENT) IV ZOSYN (ER) (This form is maintained as a part of the permanent medical record) 2014 [employer]. All Rights Reserved TJ [email or web address] Office: [phone] [facility]
[2018-11-27] MEDS: Acetaminophen 325 MG TAB PO PRN (15:10)
[2018-11-27] MEDS: Sodium Chloride 0.65% Nasal 44 ML BOT EA NARE SCH ×2 (17:47→20:54)
[2018-11-27] MEDS: Carvedilol 6.25 MG TAB PO SCH (17:47)
[2018-11-27] MEDS ORDERED: traZODone HCl 50 MG TAB PO SCH (21:00)
[2018-11-28] MEDS: Budesonide 0.5 MG/2 ML NEB NEB SCH (05:50)
[2018-11-28] MEDS: Arformoterol 15 MCG/2 ML NEB NEB SCH (06:04)
--- NOTE | 2018-11-28 07:41 | EKG ---
Test Reason : CP Blood Pressure : / mmHG Vent. Rate : 091 BPM Atrial Rate : 163 BPM P-R Int : 000 ms QRS Dur : 088 ms QT Int : 332 ms P-R-T Axes : 000 -07 -09 degrees QTc Int : 408 ms Atrial Fibrillation Nonspecific ST and T wave abnormality , probably digitalis effect Abnormal ECG When compared with ECG of 24-NOV-2018 20:30, (Unconfirmed) No significant change was found Confirmed by GISSELLE ANGUIANO ([id number]) on 11/28/2018 7:41:05 AM Referred By: LLOYD Confirmed By:GISSELLE ANGUIANO
[2018-11-28 08:15] LABS: Anion Gap 17 mmol/L (10-20); BUN (Urea Nitrogen) 16 mg/dL (9.8-20.1); Calc. Creatinine Clearance 34 mL/min (70-130); Calcium 8.7 mg/dL (7.8-10.44); Carbon Dioxide 32 mmol/L (23-31); Estimated GFR-MDRD 64; Glucose 78 mg/dL (83-110); Magnesium 1.9 mg/dL (1.6-2.6); Potassium 3.5 mmol/L (3.5-5.1)
[2018-11-28 08:19] LABS: Chloride 71 mmol/L (98-107); Sodium 116 mmol/L (136-145)
[2018-11-28] MEDS ORDERED: (Roflumilast [Daliresp] 500 MCG) PO SCH (09:00)
--- NOTE | 2018-11-28 09:53 | PDOC.CTH ---
Cardiology Progress Note - Subjective The pt seen and examined. No overnight. No cardiac complaints. Plan to go home with hospice. - Objective Vital Signs Temp Pulse Resp Pulse Ox 11/28/18 09:25 91 18 94 L 11/28/18 07:43 97.9 F 85 17 95 11/28/18 06:04 89 16 95 11/28/18 05:50 89 16 95 11/28/18 02:28 98 16 94 L 11/28/18 00:00 98 F 78 16 95 11/27/18 22:24 101 H 16 Weight 97 lb 11.2 oz 11/27/18 11/28/18 11/29/18 06:59 06:59 06:59 Intake Total 440 Output Total 800 Balance -360 - Physical Examination General/Neuro: alert & oriented x3 Neck: no JVD present Lungs: other: (diminished at bases) Heart: other: (irregular) Abdomen: soft Extremities: other: (generalized edema) - Telemetry Telemetry Rhythm: Afib - Labs Result Diagrams: 11/27/18 09:03 11/28/18 07:48 Troponin/CKMB Troponin I 0.025 ng/mL (< 0.028) 11/25/18 03:00 - Assessment/Plan 1. Acute on Chronic diastolic HF - Her resp. status has been improved since yesterday per the pt. On Coreg 6.25mg BID. When the pt's VS is more stable with stable Cr level, may start LAUREN/ARB. 2. Afib - well controlled HR with Diltiazem 120mg qd, Digoxin 0.125mg qd, Coreg 6.25mg BID; Not on OAC or ASA 2/2 Epistaxis 3. HTN - stable with Coreg 6.25mg BID 4. COPD - stable with NC. 5. Anemia 2/2 Epistaxis - cont. to monitor 6. CP with tingling - cont. dull like CP with tingling to Rt hand MAR reviewed * Pt. has decided to go home with hospice. * IF she agrees, she can f/u with Dr Carpenter' office within 1 month. Review of Systems - Review of Systems Constitutional: reports: weakness EENTM: reports: no symptoms reported Respiratory: reports: no symptoms reported Cardiac (ROS): reports: no symptoms reported ABD/GI: reports: no symptoms reported : reports: no symptoms reported Musculoskeletal: reports: no symptoms reported
--- NOTE | 2018-11-28 10:04 | PRG ---
DATE OF SERVICE: 11/27/2018 SUBJECTIVE: Ms. Cheng presented to the emergency room Tuesday evening with nosebleed. It was found that she also had some pneumonia and other heart related issues. Dr. Gamez was consulted concerning the nosebleed. It was determined that she should have a nasal packing performed and that we would then attempt to take care of her in the office on Tuesday when she was discharged; however, discharge status was unable to get to us on Tuesday. Therefore, I was called in to assess the nose and roof packing. OBJECTIVE: GENERAL: Ms. Cheng is very pleasant elderly woman. HEENT: She has currently had nasal packing in the right nostril. Packing was removed and any residual clots were taken out using suction. Nose was then examined under direct observation with nasal speculum. Anterior septum did reveal several small superficial vessels. These were all cauterized using silver nitrate. The patient tolerated that procedure well. There was no residual bleeding. It was recommended that Afrin be placed at bedside just in case there was mild bleeding postprocedure. Also recommended that some form of saline nasal spray would be used 4 times a day to keep the area moist. ASSESSMENT: 1. Epistaxis. 2. Nasal cautery. PLAN: Direct pressure with Afrin if bleeding occurs again. Consult ENT as needed. Job ID: [id number]
[2018-11-28] MEDS: Digoxin 0.125 MG TAB PO SCH (10:13)
[2018-11-28] MEDS: Donepezil HCl 10 MG TAB PO SCH (10:18)
[2018-11-28] MEDS: Carvedilol 6.25 MG TAB PO SCH ×2 (10:18→18:01)
[2018-11-28] MEDS: Sodium Chloride 0.65% Nasal 44 ML BOT EA NARE SCH ×3 (10:19→18:01)
--- NOTE | 2018-11-28 11:29 | PDOC.PN ---
- Subjective Encounter Start Date: 11/28/18 Encounter Start Time: 07:10 Patient seen and examined. No new complaints. No overnight events - Objective Resuscitation Status - Order Detail: 11/26/18 19:43 Resuscitation Status Routine Resuscitation Status: DNAR: NO Resuscitation Discussed with: Caitlin Cheng and her daughter IRVING Reviewed: Yes Vital Signs & Weight: Vital Signs (12 hours) Temp Pulse Resp BP Pulse Ox 11/28/18 10:18 132/58 L 11/28/18 10:16 88 132/58 L 11/28/18 10:13 88 11/28/18 09:25 91 18 94 L 11/28/18 07:43 97.9 F 85 17 95 11/28/18 06:04 89 16 95 11/28/18 05:50 89 16 95 11/28/18 02:28 98 16 94 L 11/28/18 00:00 98 F 78 16 95 Weight Weight 97 lb 11.2 oz I&O: 11/27/18 11/28/18 11/29/18 06:59 06:59 06:59 Intake Total 440 Output Total 800 Balance -360 Result Diagrams: 11/27/18 09:03 11/28/18 07:48 EKG Reviewed by me: Yes Phys Exam - Physical Examination Constitutional: NAD HEENT: PERRLA, moist MMs, sclera anicteric Neck: no JVD, supple Respiratory: no wheezing, no rales, no rhonchi reduced air entry Cardiovascular: RRR, no significant murmur, no rub Gastrointestinal: soft, non-tender, no distention, positive bowel sounds Musculoskeletal: no edema, pulses present Neurological: non-focal Lymphatic: no nodes Psychiatric: normal affect Skin: no rash, normal turgor Dx/Plan (1) Acute kidney failure Status: Acute (2) Acute on chronic diastolic ACC/AHA stage C congestive heart failure Code(s): I50.33 - ACUTE ON CHRONIC DIASTOLIC (CONGESTIVE) HEART FAILURE Status : Acute (3) Epistaxis Code(s): R04.0 - EPISTAXIS Status: Acute (4) Hypomagnesemia Code(s): E83.42 - HYPOMAGNESEMIA Status: Acute (5) Hyponatremia Code(s): E87.1 - HYPO-OSMOLALITY AND HYPONATREMIA Status: Acute (6) COPD (chronic obstructive pulmonary disease) Status: Chronic (7) Chronic atrial fibrillation Code(s): I48.2 - CHRONIC ATRIAL FIBRILLATION Status: Chronic (8) Chronic respiratory failure with hypoxia, on home O2 therapy Code(s): J96.11 - CHRONIC RESPIRATORY FAILURE WITH HYPOXIA; Z99.81 - DEPENDENCE ON SUPPLEMENTAL OXYGEN Status: Chronic (9) Senile dementia Code(s): F03.90 - UNSPECIFIED DEMENTIA WITHOUT BEHAVIORAL DISTURBANCE Status: Chronic - Plan cont current plan of care, plan discussed w/ family, social services designee, respiratory therapy * severe hyponatremia is concern * will consult nephrology * eventual placement to home hospice * medication reviewed as below * symptomatic treatment * prognosis is very poor. Review of Systems - Review of Systems Constitutional: weakness. negative: fever, chills, sweats, malaise, other Respiratory: Cough, SOB with Excertion. negative: Dry, Shortness of Breath, Hemoptysis, Pleuritic Pain, Sputum, Wheezing Cardiovascular: negative: chest pain, palpitations, orthopnea, paroxysmal nocturnal dyspnea, edema, light headedness, other Gastrointestinal: negative: Nausea, Vomiting, Abdominal Pain, Diarrhea, Constipation, Melena, Hematochezia, Other Genitourinary: negative: Dysuria, Frequency, Incontinence, Hematuria, Retention , Other Musculoskeletal: negative: Neck Pain, Shoulder Pain, Arm Pain, Back Pain, Hand Pain, Leg Pain, Foot Pain, Other Skin: negative: Rash, Lesions, Sameer, Bruising, Other - Medications/Allergies Allergies/Adverse Reactions: Allergies Allergy/AdvReac Type Severity Reaction Status Date / Time No Known Allergies Allergy Unverified 08/13/15 10:42 Medications: Current Medications Acetaminophen (Tylenol) 650 mg PO Q6H PRN PRN Reason: Headache/Fever or Pain Last Admin: 11/27/18 15:10 Dose: 650 mg Albuterol/Ipratropium (Duoneb) 3 ml NEB [id number] JERRI Last Admin: 11/28/18 09:25 Dose: 3 ml Arformoterol Tartrate (Brovana) 15 mcg NEB BID-RT JERRI Last Admin: 11/28/18 06:04 Dose: 15 mcg Artificial Tears (Tears Naturale) 2 drop EA EYE PRN PRN PRN Reason: Dry Eyes Bisacodyl (Dulcolax) 10 mg [place] DAILYPRN PRN PRN Reason: Constipation Budesonide (Pulmicort Neb Solution) 0.5 mg NEB BID-RT [facility] Carvedilol (Coreg) 6.25 mg PO BID-WM [facility] Last Admin: 11/28/18 10:18 Dose: 6.25 mg Digoxin (Lanoxin) 0.125 mg PO DAILY [facility] Last Admin: 11/28/18 10:13 Dose: 0.125 mg Diltiazem HCl (Cardizem Cd) 120 mg PO DAILY [facility] Last Admin: 11/28/18 10:16 Dose: 120 mg Donepezil HCl (Aricept) 10 mg PO DAILY [facility] Last Admin: 11/28/18 10:18 Dose: 10 mg Guaifenesin (Robitussin Sf) 200 mg PO Q4H PRN PRN Reason: Cough Hydralazine HCl (Apresoline) 10 mg SLOW IVP Q4H PRN PRN Reason: SBP > 180 and HR < 70 Loperamide HCl (Imodium) 2 mg PO PRN PRN PRN Reason: Diarrhea/Loose Stools Loratadine (Claritin) 10 mg PO DAILYPRN PRN PRN Reason: Sinus Symptoms Mineral Oil/White Petrolatum (Eucerin Cream) 0 gm TOP BIDPRN PRN PRN Reason: Dry Skin Nitroglycerin (Nitrostat) 0.4 mg SL Q5MIN PRN PRN Reason: Chest Pain Last Admin: 11/26/18 23:26 Dose: 0.4 mg (Roflumilast [ (Daliresp] 500 Mcg)) 0 mcg PO DAILY [facility] Last Admin: 11/28/18 10:20 Dose: 500 mcg Ondansetron HCl (Zofran Odt) 4 mg PO Q4H PRN PRN Reason: Nausea/Vomiting Last Admin: 11/27/18 00:00 Dose: 4 mg Ondansetron HCl (Zofran) 4 mg IVP Q6H PRN PRN Reason: Nausea/Vomiting Oxymetazoline HCl (Oxymetazoline Hcl) 0 sprays NASAL Q12H PRN PRN Reason: .NOSEBLEED Senna/Docusate Sodium (Senokot S) 2 tab PO BID PRN PRN Reason: Constipation Sodium Chloride ([place] Nasal [place] 0.65%) 0 ml EA NARE QIDPRN PRN PRN Reason: Nasal Congestion Sodium Chloride (Flush - Normal Saline) 10 ml IVF Q12HR [facility] Last Admin: 11/28/18 10:20 Dose: 10 ml Sodium Chloride (Flush - Normal Saline) 10 ml IVF PRN PRN PRN Reason: Saline Flush Sodium Chloride ([place] Nasal [place] 0.65%) 0 ml EA NARE QID [facility] Last Admin: 11/28/18 10:19 Dose: 2 sprays Throat Lozenges (Cepastat Lozenges) 1 radha PO Q2H PRN PRN Reason: Sore Throat Trazodone HCl (Desyrel) 100 mg PO HS [facility] Last Admin: 11/27/18 20:55 Dose: Not Given
[2018-11-28 11:56] VITALS: TEMP 98.1
[2018-11-28 18:01] VITALS: BP 132/58
[2018-11-28] MEDS ORDERED: Budesonide 0.5 MG/2 ML NEB NEB SCH (18:30)
--- NOTE | 2018-11-28 21:42 | DIS ---
DATE OF ADMISSION: 11/25/2018 DATE OF DISCHARGE: 11/28/2018 PRIMARY CARE PHYSICIAN: Dr. Zack Maldonado. DISCHARGE DISPOSITION: Home with home hospice. PRIMARY DISCHARGE DIAGNOSES: Acute on chronic respiratory failure with hypoxia and hypercapnia, acute kidney failure, acute on chronic diastolic heart failure, epistaxis, hyponatremia, and hypomagnesemia. SECONDARY DISCHARGE DIAGNOSES: Senile dementia, chronic obstructive pulmonary disease, chronic respiratory failure with hypoxia and hypercapnia, chronic atrial fibrillation, chronic diastolic heart failure, and chronic physical deconditioning. PRIMARY PROCEDURE/OPERATION: None. RADIOLOGICAL INVESTIGATION: Chest x-ray showed chronic changes with congestion. SIGNIFICANT LABORATORY DATA: WBC 7.4, hemoglobin 8.3, and platelet 219. INR 0.9. Sodium 116, creatinine 0.84, calcium 8.7, AST 39, and alkaline phosphatase 76. BNP 167. DISCHARGE MEDICATIONS: 1. Sodium chloride 1 g p.o. b.i.d. 2. Trazodone 100 mg p.o. at bedtime. 3. Demadex 50 mg daily. 4. Daliresp 500 mcg p.o. daily. 5. vitamin 1 tablet daily. 6. Toprol 25 mg p.o. b.i.d. 7. Mobic 15 mg daily. 8. Aricept 10 mg daily. 9. Cardizem CD 120 mg daily. 10. Digoxin 0.125 mg daily. 11. Budesonide one inhalation b.i.d. 12. Aspirin 81 mg daily. 13. Perforomist 20 mcg inhalation b.i.d. 14. Ventolin nebulization q.6 hourly p.r.n. CONTRAINDICATION: None. CODE STATUS: DNR. INPATIENT DISTRIBUTION ASSOCIATE: Dr. Campuzano was consulted for hyponatremia. Dr. Carpenter was following for heart failure. TEST RESULT PENDING ON DISCHARGE: None. ALLERGIES: NO KNOWN DRUG ALLERGIES. DISCHARGE PLAN: Posthospital, the patient will follow up with primary care physician and hospice team. HOSPITAL COURSE: An 83-year-old female, who was admitted by Dr. Winkler. Please see his H and P for further details. On admission, the patient was having massive epistaxis required nasal packing. The patient was also having acute on chronic respiratory failure. She was treated with an optimum respiratory therapy. She also had acute on chronic diastolic heart failure, which was treated with diuretic therapy. The patient's condition was very fragile. She developed severe hyponatremia. The patient did not want to stay in the hospital. We consulted Nephrology and Nephrology started on salt tablet. At this point, the patient's prognosis is extremely poor. Family member made her DNR. Family member wanted to let her go home with home hospice. The patient is seen and examined at bedside today. Please see my progress note from today for further detail. Job ID: [id number]
--- NOTE | 2018-11-29 00:59 | CON ---
DATE OF CONSULTATION: 11/28/2018 REASON FOR CONSULTATION: Hyponatremia. REASON FOR ADMISSION: Nasal bleed. HISTORY OF PRESENT ILLNESS: An 83-year-old female with history of hypertension, dementia, COPD, came to the hospital with the above complaint, and was found to have hyponatremia, which gotten worse, her sodium was found to be 116, and Nephrology was consulted. The patient was edematous on arrival to the hospital and had aggressive diuresis and since then her sodium was dropping, but the patient wants to go home with home hospice and 2 daughters were at the bedside and want to take her home. The patient was counseled regarding the risk factors with severe hyponatremia and family understands. PAST MEDICAL HISTORY: Positive for hypertension, dementia, osteoporosis, COPD, atrial fibrillation, CHF. PAST SURGICAL HISTORY: Cholecystectomy, left hip surgery, appendectomy, hysterectomy. HOME MEDICATIONS: 1. DuoNeb. 2. Daliresp. 3. Metoprolol. 4. Cardizem. 5. Aspirin. 6. Budesonide. 7. Formoterol. 8. Meloxicam. 9. Torsemide. 10. Trazodone. 11. Digoxin. 12. Donepezil. ALLERGIES: NO KNOWN DRUG ALLERGIES. SOCIAL HISTORY: She used to smoke. No alcohol or illicit drug abuse. FAMILY HISTORY: No history of any kidney disease. REVIEW OF SYSTEMS: CONSTITUTIONAL: Negative for weight loss or gain, ability to conduct usual activities. SKIN: Negative for rash, itching. EYES: Negative for double vision, pain. ENT/MOUTH: Negative for nose bleeding, neck stiffness, pain, tenderness. CARDIOVASCULAR: Negative for palpitations, dyspnea on exertion, orthopnea. RESPIRATORY: Negative for shortness of breath, wheezing, cough, hemoptysis, fever or night sweats. GASTROINTESTINAL: Negative for poor appetite, abdominal pain, heartburn, nausea, vomiting, constipation, or diarrhea. GENITOURINARY: Negative for urgency, frequency, dysuria, nocturia. MUSCULOSKELETAL: Negative for pain, swelling. NEUROLOGIC/PSYCHIATRIC: Negative for anxiety, depression. ALLERGY/IMMUNOLOGIC: Negative for skin rash, bleeding tendency. PHYSICAL EXAMINATION: GENERAL: This is an elderly female, in no apparent distress. VITAL SIGNS: Temperature 98.1, pulse 77, respirations 18, blood pressure 137/56. HEENT: Atraumatic and normocephalic. Oral mucosa is dry. NECK: Supple. CVS: S1 and S2 heard. Rate and rhythm regular. RESPIRATORY: Clear. GASTROINTESTINAL: Abdomen is soft. MUSCULOSKELETAL: No tenderness. No edema. DERMATOLOGIC: No skin rash. NEUROLOGIC: Alert and awake. PSYCHIATRIC: Normal mood and affect. LABORATORY DATA: Hemoglobin 8.3, sodium is 116, potassium is 3.5. ASSESSMENT AND PLAN: 1. Severe hyponatremia. Sodium is 116, most likely hypovolemia. The patient might need IV hydration, but the patient wants to go home with home hospice and family was counseled regarding the possible complications of severe hyponatremia. Plan is to give some salt tablet, and take it home and advised to drink some Gatorade, but the patient still has complications including seizures and sudden , and family is aware of this, still wants to take her home. 2. Hypochloremia. 3. Edema. 4. Anemia. 5. Hypokalemia, replaced. The patient is high risk for complications with severe hyponatremia, family understands that and wants to take her home with home hospice and I respect her wishes and her family's wishes. They gave her some salt tablets to take it home, but the patient remains high risk for complications with severe hyponatremia. Thank you for the consult. Job ID: [id number]
== END 2018-11-28 18:07 | disposition hospice, home (50) | DRG 291 ==
LOC: ERS 20:00 → 2SE 11-25 → OBSVTOIN 11-25 06:02
PROVIDERS: ADMIT Hospitalist; ATTEND Hospitalist
PROC: 093K7ZZ Control Bleeding in Nasal Mucosa and Soft Tissue, Via Natural or Artificial Opening (ICD-10-PCS; 2018-11-26)
PROC: 093K7ZZ Control Bleeding in Nasal Mucosa and Soft Tissue, Via Natural or Artificial Opening (ICD-10-PCS; principal; 2018-11-27)
DX: I13.0 Hypertensive heart and chronic kidney disease with heart failure and stage 1 through stage 4 chronic kidney disease, or unspecified chronic kidney disease (principal); I50.33 Acute on chronic diastolic (congestive) heart failure; J96.21 Acute and chronic respiratory failure with hypoxia; J96.22 Acute and chronic respiratory failure with hypercapnia; N17.9 Acute kidney failure, unspecified; E87.1 Hypo-osmolality and hyponatremia; E44.0 Moderate protein-calorie malnutrition; Z51.5 Encounter for palliative care; Z66 Do not resuscitate; F03.90 Unspecified dementia, unspecified severity, without behavioral disturbance, psychotic disturbance, mood disturbance, and anxiety; M81.0 Age-related osteoporosis without current pathological fracture; D50.0 Iron deficiency anemia secondary to blood loss (chronic); R04.0 Epistaxis; I48.2 Chronic atrial fibrillation; N18.9 Chronic kidney disease, unspecified; E86.1 Hypovolemia; E83.42 Hypomagnesemia; G47.00 Insomnia, unspecified; E87.8 Other disorders of electrolyte and fluid balance, not elsewhere classified; J44.9 Chronic obstructive pulmonary disease, unspecified; Z86.73 Personal history of transient ischemic attack (TIA), and cerebral infarction without residual deficits; Z90.49 Acquired absence of other specified parts of digestive tract; Z87.891 Personal history of nicotine dependence; Z90.710 Acquired absence of both cervix and uterus; Z79.82 Long term (current) use of aspirin; Z79.899 Other long term (current) drug therapy; Z99.81 Dependence on supplemental oxygen; Z68.21 Body mass index [BMI] 21.0-21.9, adult
CPT/HCPCS: 36415; 71045; 80048; 80053; 82805; 83735; 83880; 84443; 84484; 85025; 85610; 85730; 86850; 86900; 86901; 93005; 93010; 94640; 94760; J0696; J1940; J2543; J3475; J7050; J7620; J7626; Q0162